=== PATIENT | male | born 1995 | race Caucasian/White ===

== ENCOUNTER 2017-11-03 05:54 | Emergency (ER) | payer BC ==
[2017-11-03 06:46] LABS: Absolute Lymphocytes (CBC) 3.6 K/uL (0.7-4.9); Absolute Monocytes 0.7 K/uL (0.1-1.3); Absolute Neutrophil 3.7 K/uL (1.8-8.0); Basophils % 0.8 % (0-1.3); Eosinophils % 0.9 % (0-4.4); Hematocrit 43.8 % (39.6-49.0); Lymphocytes % 44.5 % (15.3-44.8); MCH 30.9 pg (27.0-35.0); MCV 90.8 fL (80-100); MPV 9.4 fL (7.6-11.3); Monocytes % 8.6 % (3.3-12.3); RBC Red Blood Cell Count 4.83 M/uL (4.33-5.43)
[2017-11-03 06:57] LABS: Urine Blood NEGATIVE (NEG); Urine Glucose NEGATIVE (NEG); Urine Protein NEGATIVE (NEG); Urine Specific Gravity >1.030 (1.005-1.030); Urine pH 5.5 (5.0-7.0)
[2017-11-03 07:33] LABS: Barbiturates NEGATIVE; Benzodiazepines NEGATIVE; Cocaine NEGATIVE; METHAMPHETAM NEGATIVE; Opiates NEGATIVE; Phencyclidine NEGATIVE; THC Cannibis NEGATIVE
--- NOTE | 2017-11-03 08:03 | RAD REPORT ---
EXAM DESCRIPTION: CT - Head Brain Wo Cont - 11/03/2017 6:36 am CLINICAL HISTORY: Headache, altered consciousness. Seizure. COMPARISON: None. TECHNIQUE: All CT scans are performed using dose optimization technique as appropriate and may inclu de automated exposure control or mA/KV adjustment according to patient size. FINDINGS: No intracranial hemorrhage, hydrocephalus or extra-axial fluid collection.No areas of brai n edema or evidence of midline shift. The paranasal sinuses and mastoids are clear. The calvarium is intact. IMPRESSION: No acute intracranial abnormality.
--- NOTE | 2017-11-03 08:28 | RAD REPORT ---
EXAM DESCRIPTION: RAD - Chest Single View - 11/03/2017 8:22 am CLINICAL HISTORY: Chest pain. COMPARISON: None. FINDINGS: Portable technique limits examination quality. The lungs are grossly clear. The heart is normal in size. No displaced fractures. IMPRESSION: No acute intrathoracic process suspected.
[2017-11-03 08:37] LABS: Bicarbonate 26 mEq/L (21-31); Glucose Level 127 mg/dL (65-120); Potassium 3.5 mEq/L (3.6-5.0); Sodium Level 137 mEq/L (135-145)
[2017-11-03 08:43] LABS: ALT/SGPT 37 IU/L (10-60); AST/SGOT 25 IU/L (10-42); Albumin 4.1 g/dL (3.2-5.5); Alkaline Phosphatase 60 IU/L (42-121); BUN Blood Urea Nitrogen 15 mg/dL (6-20); Bilirubin Direct 0.1 mg/dL (0-0.2); Bilirubin Total 0.4 mg/dL (0.3-1.2); Creatine Phosphokinase 152 IU/L (22-269); Magnesium 1.9 mg/dL (1.8-2.5); Protein, Total 7.1 g/dL (6.0-8.3)
[2017-11-03 09:19] LABS: Alcohol Serum/Plasma < 10 mg/dl
--- NOTE | 2017-11-03 09:41 | ER ---
Nurse's Notes [facility] Name: Albert Spangler Age: 22 yrs Sex: Male : 1995 Arrival Date: 11/03/2017 Time: 05:59 Bed 6 Private MD: Diagnosis: Syncope and collapse Presentation: 11/03 06:07 Presenting complaint: Patient states: Pt brother stated that they were sitting and tl2 eating breakfast and he c/o chest pain and fell over and began twitching for about 30 seconds. Pt was confused for about 1 min after waking up. Pt is AOx4, remembers his chest hurting but not the episode. Pt denies pain at this time. Transition of care: patient was not received from another setting of care. Onset of symptoms was November 03, 2017 at 05:30. Initial Sepsis Screen: Does the patient meet any 2 criteria? No. Patient's initial sepsis screen is negative. Does the patient have a suspected source of infection? No. Patient's initial sepsis screen is negative. Care prior to arrival: None. 06:07 Method Of Arrival: Ambulatory tl2 06:07 Acuity: MATIAS 3 tl2 Triage Assessment: 06:09 General: Appears in no apparent distress. comfortable, Behavior is calm, cooperative, tl2 appropriate for age. Pain: Denies pain. Neuro: Level of Consciousness is awake, alert, obeys commands, Oriented to person, place, time, situation. Cardiovascular: Denies chest pain. Respiratory: Airway is patent Respiratory effort is even, unlabored, Respiratory pattern is regular, symmetrical. GI: No signs and/or symptoms were reported involving the gastrointestinal system. : No signs and/or symptoms were reported regarding the genitourinary system. Derm: Skin is pink, warm \T\ dry. Historical: - Allergies: 06:09 No Known Allergies; tl2 - Home Meds: 06:09 None [Active]; tl2 - PMHx: 06:09 None; tl2 - Immunization history:: Adult Immunizations. - Social history:: Smoking status: Patient/guardian denies using tobacco. Screenin:12 Abuse screen: Denies threats or abuse. Nutritional screening: No deficits noted. tl2 Tuberculosis screening: No symptoms or risk factors identified. Fall Risk None identified. Assessment: 06:25 General: see triage assessment. tl2 06:51 Reassessment: Patient appears in no apparent distress at this time. No changes from tl2 previously documented assessment. Patient and/or family updated on plan of care and expected duration. Pain level reassessed. Patient is alert, oriented x 3, equal unlabored respirations, skin warm/dry/pink. 09:00 Reassessment: Patient appears in no apparent distress at this time. Patient and/or sg family updated on plan of care and expected duration. Pain level reassessed. Patient is alert, oriented x 3, equal unlabored respirations, skin warm/dry/pink. Stephen TRAN notified of pt being in the 30's-47's bpm on the monitor, pt reports feeling fine. no new orders received at this time, pt remains on the monitors, srx2, bed in low and locked position, call light within reach, pt friend remains at bedside at this time. 09:20 Reassessment: Patient appears in no apparent distress at this time. Patient is alert, sg oriented x 3, equal unlabored respirations, skin warm/dry/pink. Stephen TRAN at bedside reevaluating pt at this time, orders received for repeat EKG. Vital Signs: 06:09 BP 145 / 87; Pulse 77; Resp 18; Temp 97.8(O); Pulse Ox 99% on R/A; Weight 99.79 kg; tl2 Height 5 ft. 10 in. (177.80 cm); Pain 0/10; 06:51 BP 132 / 97; Pulse 64; Resp 21; Pulse Ox 98% on R/A; tl2 08:16 BP 119 / 59; Pulse 68; Resp 14; Pulse Ox 98% on R/A; sg 09:03 BP 112 / 83; Pulse 47 MON; Resp 12 S; Pulse Ox 99% on R/A; sg 09:45 BP 111 / 80; Pulse 60; Resp 12 S; Pulse Ox 100% on R/A; sg 06:09 Body Mass Index 31.57 (99.79 kg, 177.80 cm) tl2 09:03 pt resting quietly, eyes closed, pt awakens easily to verbal stimuli sg Vitals: 06:51 Cardiac Rhythm Assessment Sinus rhythm. tl2 09:03 Cardiac Rhythm Assessment Sinus barber. sg Robert Coma Score: 06:09 Eye Response: spontaneous(4). Verbal Response: oriented(5). Motor Response: obeys tl2 commands(6). Total: 15. ED Course: 05:59 Patient arrived in ED. am2 06:05 Stephen Christianson PA is PHCP. jr8 06:05 Devang Ward MD is Attending Physician. jr8 06:07 Kelsey Reid, JANICE is Primary Nurse. tl2 06:09 Triage completed. tl2 06:09 Arm band placed on right wrist. tl2 06:12 Patient has correct armband on for positive identification. Bed in low position. Call tl2 light in reach. Side rails up X 1. Adult w/ patient. 06:12 Seizure precautions initiated. tl2 06:25 Inserted saline lock: 20 gauge in right antecubital area, using aseptic technique. tl2 Blood collected. 06:36 CT Head Brain wo Cont In Process Unspecified. EDMS 07:10 Primary Nurse role handed off by Kelsey Reid, JANICE sg 07:10 Gagan Osorio, RN is Primary Nurse. sg 08:21 XRAY Chest (1 view) In Process Unspecified. EDMS 09:38 EKG done, by loss control technician. reviewed by Stephen TRAN Repeat EKG. at1 09:39 Jared Niño MD is Referral Physician. jr8 09:39 Jaskaran Mijares MD is Referral Physician. jr8 09:48 No provider procedures requiring assistance completed. IV discontinued, intact, sg bleeding controlled, No redness/swelling at site. Pressure dressing applied. Administered Medications: No medications were administered Outcome: 09:39 Discharge ordered by MD. jr8 09:48 Discharged to home ambulatory, with friend. sg 09:48 Condition: good 09:48 Discharge instructions given to patient, Instructed on discharge instructions, follow up and referral plans. safety practices, Demonstrated understanding of instructions, follow-up care. 09:51 Patient left the ED. iw Signatures: Dispatcher [employer] EDMS Gagan Osorio RN RN sg Patricia Smith RN RN iw Stephen Christianson PA PA jr8 Elaine carolina, mortgage loan interviewer EKG Tat1 Kelsey Reid RN RN tl2 Elaine Smith am2
--- NOTE | 2017-11-03 09:41 | EDPHYS ---
Physician Documentation [facility] Name: Albert Spangler Age: 22 yrs Sex: Male : 1995 Arrival Date: 11/03/2017 Time: 05:59 Bed 6 Private MD: ED Physician Devang Ward HPI: 11/03 07:46 This 22 yrs old Male presents to ER via Ambulatory with complaints of jr8 Probable Seizure. 07:46 The patient presents after having a single isolated seizure, that lasted 30 second(s), jr8 the episode(s) was witnessed, by family, brother. Character of seizure(s): Loss of consciousness: the patient experienced loss of consciousness, during seizure(s), Motor activity: blank stare, "stiffening", Incontinence: none, Apnea: the patient did not experience apnea, Circulation: the patient did not experience evidence of pulse disturbance, Eye movements: the eyes did not move. Seizure onset: just prior to arrival. Context: the seizure(s) was witnessed, by family, occurred at home, occurred while the patient was sitting, Contributing factors: unknown. Seizure Hx: the patient has no previous seizure history. Associated injury: The patient did not suffer any apparent associated injury. Current symptoms: Currently, the patient is not experiencing any symptoms, the patient feels back to baseline, no decreased level of consciousness, no confusion, no dysphasia, no headache, no paralysis, no visual changes. The patient has not experienced similar symptoms in the past. The patient has not recently seen a physician. Patient stated that he had just got home from work. Him and his brother had sat down to eat cereal. Stated that he started to get chest pressure then vertigo like sensation. Soon after collapsed out of chair and started to "stiffen" up per brother. Episode lasting about 30 seconds. Denies history of this in past. Historical: - Allergies: 06:09 No Known Allergies; tl2 - Home Meds: 06:09 None [Active]; tl2 - PMHx: 06:09 None; tl2 - Immunization history:: Adult Immunizations. - Social history:: Smoking status: Patient/guardian denies using tobacco. ROS: 07:46 Eyes: Negative for injury, pain, redness, and discharge, ENT: Negative for injury, jr8 pain, and discharge, Neck: Negative for injury, pain, and swelling, Respiratory: Negative for shortness of breath, cough, wheezing, and pleuritic chest pain, Abdomen/GI: Negative for abdominal pain, nausea, vomiting, diarrhea, and constipation, Back: Negative for injury and pain, MS/Extremity: Negative for injury and deformity, Skin: Negative for injury, rash, and discoloration. 07:46 Cardiovascular: Positive for chest pain, Negative for edema, orthopnea, palpitations, paroxysmal nocturnal dyspnea. 07:46 Neuro: Positive for dizziness, loss of consciousness, seizure activity, syncope, Negative for altered mental status, headache, tingling, tinnitus, tremor, visual changes, weakness. Exam: 07:46 Head/Face: Normocephalic, atraumatic. Eyes: Pupils equal round and reactive to light, jr8 extra-ocular motions intact. Lids and lashes normal. Conjunctiva and sclera are non-icteric and not injected. Cornea within normal limits. Periorbital areas with no swelling, redness, or edema. ENT: Nares patent. No nasal discharge, no septal abnormalities noted. Tympanic membranes are normal and external auditory canals are clear. Oropharynx with no redness, swelling, or masses, exudates, or evidence of obstruction, uvula midline. Mucous membranes moist. Neck: Trachea midline, no thyromegaly or masses palpated, and no cervical lymphadenopathy. Supple, full range of motion without nuchal rigidity, or vertebral point tenderness. No Meningismus. Cardiovascular: Regular rate and rhythm with a normal S1 and S2. No gallops, murmurs, or rubs. Normal PMI, no JVD. No pulse deficits. Respiratory: Lungs have equal breath sounds bilaterally, clear to auscultation and percussion. No rales, rhonchi or wheezes noted. No increased work of breathing, no retractions or nasal flaring. Abdomen/GI: Soft, non-tender, with normal bowel sounds. No distension or tympany. No guarding or rebound. No evidence of tenderness throughout. Back: No spinal tenderness. No costovertebral tenderness. Full range of motion. Skin: Warm, dry with normal turgor. Normal color with no rashes, no lesions, and no evidence of cellulitis. MS/ Extremity: Pulses equal, no cyanosis. Neurovascular intact. Full, normal range of motion. Neuro: Awake and alert, GCS 15, oriented to person, place, time, and situation. Cranial nerves II-XII grossly intact. Motor strength 5/5 in all extremities. Sensory grossly intact. Cerebellar exam normal. Normal gait. Vital Signs: 06:09 BP 145 / 87; Pulse 77; Resp 18; Temp 97.8(O); Pulse Ox 99% on R/A; Weight 99.79 kg; tl2 Height 5 ft. 10 in. (177.80 cm); Pain 0/10; 06:51 BP 132 / 97; Pulse 64; Resp 21; Pulse Ox 98% on R/A; tl2 08:16 BP 119 / 59; Pulse 68; Resp 14; Pulse Ox 98% on R/A; sg 09:03 BP 112 / 83; Pulse 47 MON; Resp 12 S; Pulse Ox 99% on R/A; sg 09:45 BP 111 / 80; Pulse 60; Resp 12 S; Pulse Ox 100% on R/A; sg 06:09 Body Mass Index 31.57 (99.79 kg, 177.80 cm) tl2 09:03 pt resting quietly, eyes closed, pt awakens easily to verbal stimuli sg [place] Coma Score: 06:09 Eye Response: spontaneous(4). Verbal Response: oriented(5). Motor Response: obeys tl2 commands(6). Total: 15. MDM: 06:05 Patient medically screened. jr8 09:37 Data reviewed: vital signs, nurses notes, lab test result(s), EKG, radiologic studies, [facility] CT scan, plain films, and as a result, I will discharge patient. Data interpreted: Pulse oximetry: on room air is 99 %. Interpretation: normal. Counseling: I had a detailed discussion with the patient and/or guardian regarding: the historical points, exam findings, and any diagnostic results supporting the discharge/admit diagnosis, lab results, radiology results, the need for outpatient follow up, a speech therapy assistant, a family practitioner, a neurologist, to return to the emergency department if symptoms worsen or persist or if there are any questions or concerns that arise at home. ED course: Patient has remained stable and asymptomatic while in ED. Negative for acute findings on labs or imaging. Recommended cardiology due to one asymptomatic episode of bradycardia that was seen as low as 40 bpm. Neurology for EEG to r/o seizure. If worse or happens again to come back to ED. Patient understood and would follow instructions or come back . 11/03 06:18 Order name: Basic Metabolic Panel; Complete Time: 09:20 jr8 11/03 06:18 Order name: BNP; Complete Time: 07:12 8 11/03 06:18 Order name: CBC with Diff; Complete Time: 06:50 11/03 06:18 Order name: CPK; Complete Time: 09:20 jr8 11/03 06:18 Order name: LFT's; Complete Time: 09:20 jr8 11/03 06:18 Order name: Magnesium; Complete Time: 09:20 8 11/03 06:18 Order name: PT-INR; Complete Time: 06:58 jr8 11/03 06:18 Order name: Troponin (emerg Dept Use Only); Complete Time: 06:59 11/03 06:18 Order name: XRAY Chest (1 view); Complete Time: 08:30 8 11/03 06:18 Order name: EKG; Complete Time: 06:19 8 11/03 06:18 Order name: ETOH Level; Complete Time: 09:20 8 11/03 06:18 Order name: UDS; Complete Time: 07:36 8 11/03 06:18 Order name: CT Head Brain wo Cont; Complete Time: 08:12 11/03 06:53 Order name: Urine Dipstick--Ancillary (enter results); Complete Time: 06:58 rg2 11/03 06:18 Order name: Cardiac monitoring; Complete Time: 06:25 jr8 11/03 06:18 Order name: EKG - Nurse/Tech; Complete Time: 06:25 8 11/03 06:18 Order name: IV Saline Lock; Complete Time: 06:25 8 11/03 06:18 Order name: Labs collected and sent; Complete Time: 06:25 jr8 11/03 06:18 Order name: O2 Per Protocol; Complete Time: 06:25 jr8 11/03 06:18 Order name: O2 Sat Monitoring; Complete Time: 06:24 11/03 06:18 Order name: Urine Dipstick-Ancillary (obtain specimen); Complete Time: 06:51 jr8 Administered Medications: No medications were administered Disposition: 11/03/17 09:39 Discharged to Home. Impression: Syncope and collapse. - Condition is Stable. - Discharge Instructions: Seizure, Adult, Syncope. - Medication Reconciliation Form, Thank You Letter, Antibiotic Education, Prescription Opioid Use, Work release form, Family Work Release form. - Follow up: Jared Niño MD; When: 2 - 3 days; Reason: Recheck today's complaints, Continuance of care, Re-evaluation by your physician. Follow up: Jaskaran Mijares MD; When: 5 - 6 days; Reason: Recheck today's complaints, Continuance of care, Re-evaluation by your physician. - Problem is new. - Symptoms have improved. Addendum: 11/07/2017 21:30 Co-signature as Attending Physician, Devang Ward MD. g s Signatures: Dispatcher [employer] Patricia Prasad, RN RN Stephen Ji PA PA jr8 Kelsey Reid RN RN tl2 Devang Ward MD MD
--- NOTE | 2017-11-03 12:55 | EKG ---
Test Date: 2017-11-03 Test Time: 09:29:41 Spool Cleaner Hand: EVELIN MEASUREMENT RESULTS: Intervals: Rate: 52 UT: 150 QRSD: 76 QT: 436 QTc: 405 [place]: P: 20 UT: 150 QRS: 23 T: 15 INTERPRETIVE STATEMENTS: Sinus bradycardia Otherwise normal ECG Compared to ECG 11/03/2017 06:23:38 Sinus rhythm no longer present Electronically Signed On 11-03-17 12:55:15 CDT by Jared Niño
--- NOTE | 2017-11-03 12:57 | EKG ---
Test Date: 2017-11-03 Test Time: 06:23:38 Drive Thru Order Taker: KT MEASUREMENT RESULTS: Intervals: Rate: 62 VT: 134 QRSD: 78 QT: 410 QTc: 416 [place]: P: 35 VT: 134 QRS: 22 T: 24 INTERPRETIVE STATEMENTS: Normal sinus rhythm Normal ECG No previous ECG available for comparison Electronically Signed On 11-03-17 12:55:36 CDT by Jared Niño
== END 2017-11-03 09:51 | disposition home or self-care (01) ==
LOC: ER 05:54
DX: R55 Syncope and collapse (principal)
CPT/HCPCS: 36415; 70450; 71045; 80048; 80076; 80307; 80320; 81003; 82550; 83735; 83880; 84484; 85025; 85610; 93005; 99284

== ENCOUNTER 2017-12-23 11:25 | Emergency (ER) | payer BC ==
--- NOTE | 2017-12-23 12:10 | EDPHYS ---
Physician Documentation [facility] Name: Albert Spangler Age: 22 yrs Sex: Male : 1995 Arrival Date: 12/23/2017 Time: 11:30 Bed 12 Private MD: None, None ED Physician Julien Clemons HPI: 12/23 12:03 This 22 yrs old Male presents to ER via Ambulatory with complaints of cp Drainage From Ear. 12:03 The patient presents with drainage, that is bloody, pain, that is acute. The complaints cp affect the right ear. Onset: The symptoms/episode began/occurred yesterday. Associated signs and symptoms: Pertinent negatives: cough, fever, nausea, rhinorrhea, sinus trouble, sore throat, vertigo, vomiting, headache. Severity of symptoms: in the emergency department the symptoms are unchanged despite home interventions. Historical: - Allergies: 11:34 No Known Allergies; hb - Home Meds: 11:34 None [Active]; hb - PMHx: 11:34 None; hb - PSHx: 11:34 Ear Tubes; hb - Immunization history:: Adult Immunizations up to date. - Social history:: Smoking status: Patient/guardian denies using tobacco. - Ebola Screening: : No symptoms or risks identified at this time. ROS: 12:04 Eyes: Negative for injury, pain, redness, and discharge. cp 12:04 Constitutional: Negative for body aches, chills, fever, poor PO intake. 12:04 ENT: Positive for drainage from ear(s), ear pain, Negative for rhinorrhea, sinus congestion, sore throat, difficulty swallowing, difficulty handling secretions. 12:04 Neck: Negative for pain with movement, pain at rest, stiffness, swollen nodes. 12:04 Respiratory: Negative for cough, shortness of breath, wheezing. 12:04 Abdomen/GI: Negative for abdominal pain, nausea, vomiting, and diarrhea. 12:04 Skin: Negative for cellulitis, rash. 12:04 Neuro: Negative for altered mental status, headache, weakness. 12:04 All other systems are negative. Exam: 12:05 Head/Face: Normocephalic, atraumatic. cp 12:05 Constitutional: The patient appears in no acute distress, alert, awake, non-toxic, well developed, well nourished. 12:05 Eyes: Periorbital structures: appear normal, Conjunctiva: normal, no exudate, no injection, Lids and lashes: appear normal, bilaterally. 12:05 ENT: External ear(s): are unremarkable, Ear canal(s): bloody discharge, that is moderate, in the right canal, erythema, that is moderate, of the right canal, TM's: PE tubes visualized. noted left tympanic membrane rupture, on the right, with bloody discharge, Nose: is normal, Mouth: Lips: moist, Oral mucosa: pink and intact, moist, Posterior pharynx: is normal, airway is patent, no erythema, no exudate, Voice: is normal. 12:05 Neck: ROM/movement: is normal, is supple, without pain, no range of motions limitations, no meningismus, no nuchal rigidity, Lymph nodes: no appreciated lymphadenopathy. 12:05 Chest/axilla: Inspection: normal, Palpation: is normal, no crepitus, no tenderness. 12:05 Cardiovascular: Rate: normal, Rhythm: regular. 12:05 Respiratory: the patient does not display signs of respiratory distress, Respirations: normal, no use of accessory muscles, no retractions, no splinting, no tachypnea, Breath sounds: are clear throughout, no decreased breath sounds, no stridor, no wheezing. 12:05 Abdomen/GI: Exam negative for discomfort, distension, guarding, Inspection: abdomen appears normal. 12:05 Skin: cellulitis, is not appreciated, no rash present. Vital Signs: 11:34 BP 126 / 77; Pulse 74; Resp 16; Temp 98.0; Pulse Ox 97% ; Weight 99.79 kg; Height 5 ft. hb 10 in. (177.80 cm); Pain 4/10; 11:34 Body Mass Index 31.57 (99.79 kg, 177.80 cm) hb MDM: 11:42 Patient medically screened. cp 11:45 Differential diagnosis: otitis media, otitis externa, ruptured TM, foreign body, cp cerumen impaction, barotrauma . 12:08 Data reviewed: vital signs, nurses notes, and as a result, I will discharge patient. cp 12:08 Counseling: I had a detailed discussion with the patient and/or guardian regarding: the cp historical points, exam findings, and any diagnostic results supporting the discharge/admit diagnosis, the need for outpatient follow up, an ENT specialist, to return to the emergency department if symptoms worsen or persist or if there are any questions or concerns that arise at home. Administered Medications: No medications were administered Disposition: 12/23/17 12:10 Discharged to Home. Impression: Acute suppurative otitis media without spontaneous rupture of ear drum - Right. - Condition is Stable. - Discharge Instructions: Otitis Media, Adult. - Prescriptions for Augmentin 875- 125 mg Oral Tablet - take 1 tablet by ORAL route every 12 hours for 10 days; 20 tablet. Ciprodex 0.3- 0.1 % Otic Drops, Suspension - instill 4 drops by OTIC route every 12 hours for 7 days , for ears ONLY. instill drops in right ear canal as directed; 1 Container. - Work release form, Medication Reconciliation Form, Thank You Letter, Antibiotic Education, Prescription Opioid Use form. - Follow up: Shannon Echeverria MD; When: 2 - 3 days; Reason: Recheck today's complaints. - Problem is new. - Symptoms are unchanged. - Notes: use ear plugs when showering or bathing and no swimming. Needs ENT evaluation Addendum: 12/25/2017 08:37 Co-signature as Attending Physician, Julien Clemons MD I agree with the assessment and c king plan of care. Signatures: Julien Clemons MD MD cha Williams, Irene, RN RN Julien Stevenson PA PA cp Baxter, Heather, JANICE RN Corrections: (The following items were deleted from the chart) 12/23 12:36 12:10 12/23/2017 12:10 Discharged to Home. Impression: Acute suppurative otitis media iw without spontaneous rupture of ear drum - Right. Condition is Stable. Forms are Medication Reconciliation Form, Thank You Letter, Antibiotic Education, Prescription Opioid Use. Follow up: Shannon Echeverria; When: 2 - 3 days; Reason: Recheck today's complaints. Problem is new. Symptoms are unchanged. cp
--- NOTE | 2017-12-23 12:10 | ER ---
Nurse's Notes [facility] Name: Albert Spangler Age: 22 yrs Sex: Male : 1995 Arrival Date: 12/23/2017 Time: 11:30 Bed 12 Private MD: None, None Diagnosis: Acute suppurative otitis media without spontaneous rupture of ear drum-Right Presentation: 12/23 11:33 Presenting complaint: Patient states: Right ear pain x 2 days, bleeding from ear this hb morning. Transition of care: patient was not received from another setting of care. Onset of symptoms was December 22, 2017. Risk Assessment: Do you want to hurt yourself or someone else? Patient reports no desire to harm self or others. Initial Sepsis Screen: Does the patient meet any 2 criteria? No. Patient's initial sepsis screen is negative. Does the patient have a suspected source of infection? No. Patient's initial sepsis screen is negative. Care prior to arrival: None. 11:33 Method Of Arrival: Ambulatory hb 11:33 Acuity: MATIAS 4 hb Triage Assessment: 12:00 General: Appears in no apparent distress. Behavior is calm, cooperative. iw Historical: - Allergies: 11:34 No Known Allergies; hb - Home Meds: 11:34 None [Active]; hb - PMHx: 11:34 None; hb - PSHx: 11:34 Ear Tubes; hb - Immunization history:: Adult Immunizations up to date. - Social history:: Smoking status: Patient/guardian denies using tobacco. - Ebola Screening: : No symptoms or risks identified at this time. Screenin:30 Abuse screen: Denies threats or abuse. Denies injuries from another. Nutritional iw screening: No deficits noted. Tuberculosis screening: No symptoms or risk factors identified. Fall Risk None identified. Assessment: 12:00 General: Appears in no apparent distress. comfortable, Behavior is calm, cooperative. iw Pain: Complains of pain in right ear. Neuro: Level of Consciousness is awake, alert, obeys commands, Oriented to person, place, time, Moves all extremities. Full function. Cardiovascular: Capillary refill < 3 seconds in bilateral fingers Patient's skin is warm and dry. Respiratory: Respiratory effort is even, unlabored, Respiratory pattern is regular, symmetrical. GI:. EENT: Reports pain in right ear. Derm: Skin is pink, warm \T\ dry. normal. Musculoskeletal: Range of motion: intact in all extremities. Vital Signs: 11:34 BP 126 / 77; Pulse 74; Resp 16; Temp 98.0; Pulse Ox 97% ; Weight 99.79 kg; Height 5 ft. hb 10 in. (177.80 cm); Pain 4/10; 11:34 Body Mass Index 31.57 (99.79 kg, 177.80 cm) hb ED Course: 11:30 Patient arrived in ED. mr 11:30 None, None is Private Physician. mr 11:34 Triage completed. hb 11:34 Arm band placed on left wrist. hb 11:34 Patient has correct armband on for positive identification. iw 11:42 Julien Keating PA is PHCP. cp 11:42 Julien Clemons MD is Attending Physician. cp 11:44 Patricia Smith, RN is Primary Nurse. iw 12:09 Shannon Echeverria MD is Referral Physician. cp 12:35 No provider procedures requiring assistance completed. Patient did not have IV access iw during this emergency room visit. Administered Medications: No medications were administered Outcome: 12:10 Discharge ordered by MD. cp 12:35 Discharged to home ambulatory. iw 12:35 Condition: good 12:35 Discharge instructions given to patient, Instructed on discharge instructions, follow iw up and referral plans. medication usage, Demonstrated understanding of instructions, follow-up care, medications, Prescriptions given X 2. 12:36 Patient left the ED. iw Signatures: Shavon Abernathy Patricia Smith, RN JANICE iw Julien Keating PA PA Gracie Cervantes RN RN hb
== END 2017-12-23 12:36 | disposition home or self-care (01) ==
LOC: ER 11:25
DX: H66.001 Acute suppurative otitis media without spontaneous rupture of ear drum, right ear (principal)
CPT/HCPCS: 99282